=== PATIENT | female | born 1935 | race Caucasian/White ===

== ENCOUNTER 2018-03-18 07:40 | Day surgery (SDC) | payer MEDICARE, OTHER ==
[~2018-03-18] VITALS: Ht 157.5 cm; Wt 74.8 kg
[2018-03-18 08:25] VITALS: BP 139/78
[2018-03-18] MEDS ORDERED: CALC667T PO (08:34)
[2018-03-18] MEDS ORDERED: SITA25TA PO (08:34)
[2018-03-18] MEDS ORDERED: LACTATED RINGERS 1,000 ML IV SCH (08:34)
[2018-03-18] MEDS ORDERED: ASPI325T17 PO (08:34)
[2018-03-18] MEDS ORDERED: LEVO75TA5 PO (08:34)
[2018-03-18] MEDS ORDERED: MONT10TA6 PO (08:34)
[2018-03-18] MEDS ORDERED: OMEP-110 PO (08:34)
[2018-03-18] MEDS ORDERED: LATA2.5D3 EACHEYE (08:34)
[2018-03-18] MEDS ORDERED: HYDR12.58 PO (08:34)
[2018-03-18] MEDS ORDERED: LISI40TA PO (08:34)
[2018-03-18] MEDS ORDERED: NIFE90TA8 PO (08:34)
[2018-03-18] MEDS ORDERED: FLUT1DIS IH (08:34)
[2018-03-18] MEDS ORDERED: FENTANYL PF 100 MCG/2ML ONE (08:35)
[2018-03-18] MEDS ORDERED: MIDAZOLAM 1 MG/ML, 2ML ONE (08:35)
[2018-03-18] MEDS ORDERED: PROPOFOL 50 ML ONE (08:40)
[2018-03-18] MEDS ORDERED: KETAMINE 100 MG/ML, 5ML ONE (09:27)
[2018-03-18 09:28] LABS: ALANINE AMINOTRANSFERASE 47 U/L (12-78); ALBUMIN 3.4 g/dL (3.4-5.0); ANION GAP 11 mmol/L (5-15); CALCIUM 9.2 mg/dL (8.5-10.1); CHLORIDE 108 mmol/L (98-107); CREATININE 1.25 mg/dL (0.55-1.02)
[2018-03-18 09:30] LABS: ALKALINE PHOSPHATASE 62 U/L (45-117); BILIRUBIN,TOTAL 0.3 mg/dL (0.2-1.0); TOTAL PROTEIN 7.6 g/dL (6.4-8.2)
[2018-03-18] MEDS ORDERED: DEXAMETHASONE 4 MG/ML, 1ML ONE (09:31)
[2018-03-18] MEDS ORDERED: ONDANSETRON 2MG/ML, 2ML ONE (09:32)
[2018-03-18] MEDS ORDERED: ALBUTEROL/IPRATROPIUM 2.5MG/0.5MG, 3 ML NPPB PRN (10:00)
[2018-03-18] MEDS ORDERED: MEPERIDINE/PF 25MG/0.5ML IVPush PRN (10:00)
[2018-03-18] MEDS ORDERED: hydrALAzine 20 MG/ML, 1ML IV PRN (10:00)
[2018-03-18] MEDS ORDERED: ACETAMINOPHEN 325 MG TABLET PO PRN (10:00)
[2018-03-18] MEDS ORDERED: HALOPERIDOL 5 MG/ML IV PRN (10:00)
[2018-03-18] MEDS ORDERED: HYDROmorphone 1 MG/ML, 1ML IV PRN (10:00)
[2018-03-18] MEDS ORDERED: PROMETHAZINE 25 MG/ML, 1ML IV PRN (10:00)
[2018-03-18] MEDS ORDERED: OXYcodone 5 MG/5 ML ORAL.SOL UDC PO PRN (10:00)
[2018-03-18] MEDS ORDERED: FENTANYL PF 100 MCG/2ML IV PRN (10:00)
[2018-03-18] MEDS ORDERED: hydrALAzine 20 MG/ML, 1ML ONE (10:30)
== END 2018-03-18 11:45 ==
LOC: OUT 07:40
PROVIDERS: ATTEND Internal Medicine Geriatric Medicine
DX: K21.0 Gastro-esophageal reflux disease with esophagitis (principal); K86.2 Cyst of pancreas; I10 Essential (primary) hypertension; E03.9 Hypothyroidism, unspecified; J45.909 Unspecified asthma, uncomplicated; E11.9 Type 2 diabetes mellitus without complications; Z88.1 Allergy status to other antibiotic agents; Z88.8 Allergy status to other drugs, medicaments and biological substances
CPT/HCPCS: 43238; 80053; 82962; 88305; 93005; J0360; J1100; J2250; J2405; J2704; J3010; J7120

== ENCOUNTER → 2021-02-17 | Outpatient (CLI) | payer MEDICARE, OTHER ==
[~2021-02-17] MED LIST: ASPI325T17 PO; CALC667T4 PO; FLUT1DIS IH; HYDROCHLOROTH12.5 MG PO; LATA2.5D4 EACHEYE; LEVO75TA5 PO; LISI40TA9 PO; MONT10TA6 PO; NIFE90TA8 PO; OMEP-110 PO; OMNIPAQUE 350 MG/ML, 100ML BOTTLE ONE; SITA25TA PO
== END | disposition home or self-care (01) ==
LOC: RAD 09:50
PROVIDERS: ATTEND Internal Medicine
DX: K76.89 Other specified diseases of liver (principal); D49.0 Neoplasm of unspecified behavior of digestive system; K86.89 Other specified diseases of pancreas
CPT/HCPCS: 74178; Q9967